=== PATIENT | male | born 1970 | race Caucasian/White ===

== ENCOUNTER 2025-01-16 18:42 | Emergency (ER) | payer OTHER, SELFPAY ==
[2025-01-16 18:43] VITALS: BP 149/89
[2025-01-16 18:49] VITALS: BMI 26.4
--- NOTE | 2025-01-16 21:58 | ED.MUSCINJ ---
HPI-Injury
General
Chief Complaint: Musculo-Skeletal Complaint
Source: patient
Exam Limitations: none
Time Seen by Provider: 01/16/25 19:39
Nursing documentation reviewed up to this point in time: agreed with
History of Present Illness-Injury
Is this injury a work related problem?: Yes
Is pt an associate of [facility],[place]?: No
Initial Injury comments:
Patient states he felt a pop and pain to his knee while running. Able to bear weight but painful to ambulate. Incident occurred just [employer].
Past History
Past History
ED Past Medical History: Asthma
ED Past Surgical History: Orthopedic (L knee replaced)
Social History
Tobacco: Former smoker
Alcohol: Occasional
Personal:
Living: with family
Review of Systems
Review of Systems
Allergies reviewed?: Yes
All Other Systems: ROS reviewed and negative except as documented in HPI and ROS
Constitutional: Reports no symptoms
Musculoskeletal: Reports joint pain (Pain to right lateral knee)
Skin: Reports no symptoms
Neurological: Reports no symptoms
Psychiatric: Reports no symptoms
Musculoskeletal Injury Exam
Musculoskeletal Injury Exam
Right Lateral Knee:
Pain with Movement?: Moderate
Tender to palpation?: Moderate
Soft tissue swelling?: None
External deformity and angulation?: None
Joint effusion?: Mild
Contusion?: None
Hematoma-local bleeding into tissue?: None
Strain- Sprain- Tear (Connective tissue injury)?: Moderate
Crepitus with movement?: No
Joint instability?: No
Malalignment/deformity?: No
Range of motion: Limited
Distal skin color and temperature: normal-warm & good color
Capillary Refill: normal
Normal distal neurovascular exam?: Yes
Phy Exam
General Physical Exam
General Presentation: well appearing and no apparent distress
General age: appears stated age
General Skin: warm and dry
General Habitus: normal
General Mental: alert
General Hydration: appears well hydrated
Musculoskeletal Exam
Musculoskeletal Exam: neuro vasc intact and other (Pain to right lateral knee. No pain above or below joint.)
Skin Exam
Skin Exam: normal color, warm/dry and no rash
Psychiatric Exam
Psychiatric Exam: normal mood/affect
Injury Course
Orders/Labs/Results
Orders:
Orders
01/16/25 18:59
Knee, Right 4 or More Views [CR Knee- Right 4 Or More View*] Urgent
Comment:
Reason For Exam: felt a pop
01/16/25 19:42
Knee Immobilizer Right-Treatme ONCE
*Radiology
Radiology exam reviewed: radiology read reviewed
*Pulse Oximetry
Patient hypoxic: no
*Critical Care Note
Total Time (30-74mins, 75-104mins- exclusive of procedures): Not Applicable
Update Note
Update Note:
Xray reviewed. NO evidence of fracture. No ligament laxity on exam, tendons are intact. Will place in knee immobilizer splint and discharge home. He will follow up with his workman's comp provider in the AM
ED Attending Note
-
Portions of this chart may have been created with voice recognition software.� Occasional wrong word or��sound alike� substitutions may have occurred due to the inherent limitations of voice recognition software.
Discharge Plan
Departure
Patient Disposition: Home (Routine Discharge)
Date of Disposition: 01/16/25
Time of Disposition: 19:43
Patient with high blood pressure during this ER visit?: No
Condition: Good
Covid-19: Not Applicable
Discharge Problem:
Knee sprain
Instructions: Knee Immobilizer (DC), Knee Sprain (DC), Ibuprofen
Prescriptions:
No Action
prednisone 20 mg tablet
40 mg PO DAILY Qty: 6 0RF
Referrals:
Sebastian Noriega MD [Family Provider] -
Stand Alone Forms: Return to Work
Activity Restrictions/Additional Instructions:
Follow up with your workman's comp provider in the AM
Interventions
Interventions:
*Risk Screen - Suicide Last Done: 01/16/25 18:47
*General Assessment Last Done: 01/16/25 18:47
*Neglect/Abuse Screening Last Done: 01/16/25 18:50
*ED- Fall Risk Assessment Last Done: 01/16/25 18:49
*ED COVID-19 Vaccine History Last Done: 01/16/25 18:49
*Nursing Disposition Last Done: 01/16/25 20:20
ED-Musculoskeletal Assessment Last Done: 01/16/25 19:00
Discharge Date and Time
Discharge Date/Time: 01/16/25 20:20
Print Language: ROMANIAN
== END 2025-01-16 20:20 | disposition home or self-care (01) ==
LOC: EMR 18:42
PROVIDERS: EMERGENCY PHYSICIAN Student in an Organized Health Care Education/Training Program; FAMILY PHYSICIAN Family Medicine
DX: S83.91XA Sprain of unspecified site of right knee, initial encounter (principal); X58.XXXA Exposure to other specified factors, initial encounter; Y93.02 Activity, running; J45.909 Unspecified asthma, uncomplicated; Z87.891 Personal history of nicotine dependence
CPT/HCPCS: 99283; 29505; 73564

== ENCOUNTER → 2025-02-08 06:44 | Outpatient (REF) | payer OTHER, SELFPAY ==
[2025-02-08 07:45] LABS: % Basophils 0.7 % (0-2); % Eosinophils 2.1 % (0-6); % Lymphocytes 36.1 % (20.5-51.1); % Monocytes 13.5 % (1.7-9.3); % Neutrophils 47.6 % (42.2-75.2); Absolute Eosinophils 0.1 10^3/uL (0-0.7); Absolute Lymphocytes 1.6 10^3/uL (1.2-3.4); Absolute Monocytes 0.6 10^3/uL (0.1-0.6); Absolute Neutrophils 2.1 10^3/uL (1.4-6.5); Hematocrit 42.8 % (39.0-52.0); Hemoglobin 14.8 g/dL (13.0-18.0); Mean Corp Hgb Conc. 34.6 g/dL (33.0-37.0); Mean Corpuscular Hgb 29.2 pg (27.0-31.0); Mean Corpuscular Volume 84.6 fL (80.0-94.0); Mean Platelet Volume 9.5 fL (7.4-10.4); Nucleated Red Blood Cells % 0 % (-); Platelet Count 223 10^3/uL (130-400); Red Blood Cell Count 5.06 10^6/uL (4.70-6.10); Red Cell Dist. Width 11.6 % (11.5-14.5); White Blood Cell Count 4.4 10^3/uL (4.8-10.8)
[2025-02-08 08:32] LABS: Blood Urea Nitrogen 21 mg/dl (9-20); Calcium 10.3 mg/dl (8.4-10.2); Carbon Dioxide 25 mmol/L (22-30); Chloride 110 mmol/L (98-107); Glucose 106 mg/dl (70-99); Potassium 4.3 mmol/L (3.5-5.1); Sodium 143 mmol/L (135-145); eGFR > 60.00
== END ==
LOC: REG 06:44
PROVIDERS: ATTENDING PHYSICIAN Specialist
DX: Z01.818 Encounter for other preprocedural examination (principal)
CPT/HCPCS: 36415; 80048; 85025; 93005